=== PATIENT | female | born 1950 | race Asian ===

== ENCOUNTER 2024-11-09 19:11 | Emergency (ER) | payer MEDICARE, MEDICAID ==
[~2024-11-09] VITALS: Ht 157.5 cm; Wt 59.1 kg
[2024-11-09 19:31] VITALS: TEMP 97.7
[2024-11-09 19:55] LABS: BASOPHILS % (AUTO) 0.6 % (0.0-2.0); EOSINOPHILS % (AUTO) 2.8 % (1.0-6.0); HEMATOCRIT 37.5 % (36-46); HEMOGLOBIN 12.2 g/dL (12.0-16.0); LYMPHOCYTES # (AUTO) 2.4 K/uL (1.0-4.8); LYMPHOCYTES % (AUTO) 32.3 % (22.0-44.0); MEAN CORPUSCULAR HEMOGLOBIN 28.3 pg (26.0-34.0); MEAN CORPUSCULAR HGB CONC 32.6 G/dL (31.0-37.0); MEAN CORPUSCULAR VOLUME 87 fL (80-100); MONOCYTES # (AUTO) 0.7 K/uL (0.1-1.0); NEUTROPHILS # (AUTO) 4.1 K/uL (1.8-7.7); NEUTROPHILS % (AUTO) 54.3 % (40.0-70.0); PLATELET COUNT (AUTO) 280 K/uL (150-450); RED BLOOD CELL COUNT(AUTO) 4.32 MIL/uL (4.00-5.20); RED CELL DISTRIBUTION WIDTH 13.6 % (11.5-14.5); WHITE BLOOD COUNT (AUTO) 7.5 K/uL (4.5-11.0)
[2024-11-09 20:03] LABS: APPEARANCE,URINE CLEAR (CLEAR); BILIRUBIN,URINE NEGATIVE (NEGATIVE); COLOR,URINE COLORLESS (YELLOW); GLUCOSE, URINE (UA) NEGATIVE (NEGATIVE); KETONES,URINE NEGATIVE (NEGATIVE); LEUKOCYTE ESTERASE ,URINE LARGE (NEGATIVE); NITRATE,URINE NEGATIVE (NEGATIVE); OCCULT BLOOD,URINE SMALL (NEGATIVE); PH,URINE 5.5 (5.0-8.0); PROTEIN,URINE NEGATIVE (NEGATIVE); SPECIFIC GRAVITIY, URINE 1.005 (1.003-1.030); UROBILINOGEN,URINE <=1.0 mg/dL (<=1.0)
[2024-11-09 20:06] LABS: ANION GAP 7 mmol/L (8-16); CALCIUM, TOTAL 8.9 mg/dL (8.8-10.5); CARBON DIOXIDE 28 mmol/L (22-29); CHLORIDE 98 mmol/L (98-107); CREATININE 0.75 mg/dL (0.60-1.30); GLOMERULAR FILTR. RATE CALC > 60 mL/min (>60); GLUCOSE,RANDOM 124 mg/dL (70-110); POTASSIUM 3.5 mmol/L (3.5-5.1); SODIUM SERUM 133 mmol/L (136-145); UREA NITROGEN, BLOOD 15 mg/dL (7-18)
[2024-11-09 20:15] LABS: TROPONIN I-HIGH SENSITIVITY 8 ng/L (<51)
[2024-11-09 20:17] LABS: BACTERIA,URINE Few /HPF (None Seen); RBC,URINE 0-2 /HPF (0-2); SQUAMOUS EPITHELIAL CELL,UR Rare /LPF (None Seen); WBC,URINE 26-50 /HPF (0-5)
[2024-11-09 20:47] LABS: CREATINE KINASE, TOTAL ONLY 98 U/L (26-192); PROTHROMBIN TIME 9.7 SEC (9.4-11.6)
[2024-11-09 20:50] LABS: B-TYPE NATRIURETIC PEPTIDE 32 pg/mL (0-100)
[2024-11-09] MEDS: CEPHALEXIN MONOHYDRATE 500 MG CAPSULE PO ONE (21:58)
[2024-11-09 21:59] VITALS: BP 115/62; PULSE 66; RESP 16; O2SAT 98
[2024-11-09] MEDS ORDERED: CEPH-558 PO (22:18)
[2024-11-09] MEDS ORDERED: PHEN-846 PO (22:19)
[2024-11-10] MEDS ORDERED: CEPH-558 PO (11:06)
[2024-11-10] MEDS ORDERED: PHEN-846 PO (11:06)
== END 2024-11-09 22:36 | disposition home or self-care (01) ==
LOC: EMS 19:11
DX: N39.0 Urinary tract infection, site not specified (principal); R07.9 Chest pain, unspecified; I10 Essential (primary) hypertension; E78.00 Pure hypercholesterolemia, unspecified
CPT/HCPCS: 71045; 80048; 81001; 82550; 83880; 84484; 85025; 85610; 85730; 87086; 93005; 99285; 36415-L1; 36415-TC